=== PATIENT | female | born 1975 | race Caucasian/White ===

== ENCOUNTER 2024-04-26 13:19 | Emergency (ER) | payer OTHER ==
[2024-04-26 13:28] VITALS: TEMP 97.7; BMI 28.3
[2024-04-26 15:13] LABS: BASO % 0.6 % (0-2.0); EOS % 1.4 % (0-4.5); HEMATOCRIT 38.6 % (32.4-45.2); HEMOGLOBIN 12.9 GM/dL (10.7-15.3); LYMPH % 24.3 % (8-40); MCH 30.1 pg (25.7-33.7); MCHC 33.5 g/dl (32.0-36.0); MEAN CELL VOLUME 89.9 fl (80-96); MEAN PLT VOLUME 8.3 fl (7.5-11.1); MONO % 6.9 % (3.8-10.2); NEUT % 66.8 % (42.8-82.8); PLATELET COUNT 359 10^3/uL (134-434); RBC 4.29 M/mm3 (3.60-5.2); WHITE BLOOD COUNT 8.6 K/mm3 (4.0-10.0)
[2024-04-26 15:18] LABS: PROTHROMBIN TIME (PATIENT) 11.5 SEC (9.7-13.0)
[2024-04-26 15:20] LABS: ACTIVATED PTT 31.9 SECONDS (25.2-36.5)
[2024-04-26 15:38] LABS: POTASSIUM 4.1 mmol/L (3.5-5.1)
[2024-04-26 15:40] LABS: BLOOD UREA NITROGEN 12.3 mg/dL (7-18)
[2024-04-26 15:44] LABS: CREATININE 0.7 mg/dL (0.55-1.3)
[2024-04-26 15:45] LABS: BILIRUBIN,TOTAL 0.6 mg/dL (0.2-1); TOT PROT 7.1 g/dl (6.4-8.2)
[2024-04-26] MEDS ORDERED: ACETAMINOPHEN INJECTION 100 ML ONE (16:10)
[2024-04-26] MEDS: ACETAMINOPHEN 1000 MG/100 ML BAG IVPB ONE (16:16)
[2024-04-26 22:40] VITALS: BP 152/76; PULSE 77; RESP 18
== END 2024-04-26 22:41 | disposition home or self-care (01) ==
LOC: JER 13:19
PROC: 3E033NZ Introduction of Analgesics, Hypnotics, Sedatives into Peripheral Vein, Percutaneous Approach (ICD-10-PCS; principal; 2024-04-26)
DX: R19.5 Other fecal abnormalities (principal); R91.1 Solitary pulmonary nodule; R10.32 Left lower quadrant pain; R11.0 Nausea; R10.13 Epigastric pain
CPT/HCPCS: 36415; 74177-TC; 76705-TC; 80053; 82272; 83690; 84703; 85025; 85610; 85730; 86850; 86900; 86901; 99285-25; J0131; Q9967